=== PATIENT | female | born 1980 ===

== ENCOUNTER 2017-12-13 08:24 | Day surgery (SDC) | payer BC ==
[2017-12-07 15:36] VITALS: BMI 35.7
[2017-12-13] MEDS ORDERED: Lactated Ringer's 1,000 ML IV ONE ×3 (09:30→14:10)
[2017-12-13 09:41] LABS: BASO # 0.1 K/uL (0.0-0.2); BASO % 0.8 % (0.0-2.0); EOS # 0.1 K/uL (0.0-0.7); EOS % 1.3 % (0.0-4.0); HEMOGLOBIN 12.1 g/dL (12.0-16.0); LYMPH # 1.3 K/uL (1.0-4.3); LYMPH % 17.3 % (20.0-40.0); MEAN CELL VOLUME 82.8 fl (81.0-99.0); MEAN CORPUSCULAR HEMOGLOBIN 27.7 pg (27.0-31.0); MEAN CORPUSCULAR HGB CONC 33.4 g/dL (33.0-37.0); MEAN PLATELET VOLUME 9.1 fl (7.2-11.7); MONO # 0.4 K/uL (0.0-0.8); MONO % 5.1 % (0.0-10.0); NEUT # 5.8 K/uL (1.8-7.0); NEUT % 75.5 % (50.0-75.0); RBC 4.36 Mil/uL (3.80-5.20); RED CELL DISTRIBUTION WIDTH 14.9 % (11.5-14.5); WHITE BLOOD COUNT 7.6 K/uL (4.8-10.8)
[2017-12-13] MEDS ORDERED: ePHEDrine 50 mg/ml Inj ONE (10:17)
[2017-12-13] MEDS ORDERED: Propofol 10 mg/ml Inj (20 ML) ONE (10:17)
[2017-12-13] MEDS ORDERED: Midazolam 2 MG/2 ML VIAL ONE (10:18)
[2017-12-13] MEDS ORDERED: Rocuronium 10 mg/ml (5 ml) ONE (10:18)
[2017-12-13] MEDS ORDERED: Succinylcholine 200 mg/10 ml Inj IV ONE (10:18)
[2017-12-13] MEDS ORDERED: Lidocaine 4% (Laryng-O-Jet) Kit MM ONE (10:18)
[2017-12-13] MEDS ORDERED: ceFAZolin IV 1 gm in Dextrose 2 GM/100 ML BAG IVPB ONE (10:31)
[2017-12-13] MEDS ORDERED: Bupivacaine HCl 0.25% PF (30 ml) Inj ONE (10:31)
[2017-12-13] MEDS ORDERED: Dexamethasone 4 mg/1 ml ONE (11:11)
[2017-12-13] MEDS ORDERED: Neostigmine 1:1000 (1 mg/ml) Inj ONE (11:16)
[2017-12-13] MEDS ORDERED: Bupivacaine 0.5% Inj(30mL) IJ ONE ×2 (11:23)
--- NOTE | 2017-12-13 11:28 | OP ---
PROCEDURE DATE: 12/13/2017 SURGEON: Mina Dao MD SUPERVISOR [employer]: Christopher Montoya MD ANESTHESIOLOGIST: MD Pita Alan TYPE OF ANESTHESIA: General endotracheal. PREOPERATIVE DIAGNOSES: 1. Incapacitating pelvic pain. 2. Incapacitating abdominal pain. 3. Abnormal uterine bleeding. 4. History of pelvic endometriosis. 5. History of previously failed medical and surgical therapy. 6. Gastrointestinal and genitourinary symptoms. 7. Rule out interstitial cystitis. 8. History of multiple abdominal surgeries and pelvic adhesions POSTOPERATIVE DIAGNOSES: 1. Incapacitating pelvic pain. 2. Incapacitating abdominal pain. 3. Abnormal uterine bleeding. 4. History of pelvic endometriosis. 5. History of previously failed medical and surgical therapy. 6. History of multiple abdominal surgeries and pelvic adhesions. 7. Gastrointestinal and genitourinary symptoms. 8. extensive abdominopelvic adhesions 9. Mild ureteral distention. PROCEDURES PERFORMED: 1. Exam under anesthesia. 2. Video assisted hysteroscopy. 3. Cystoscopy. 4. Bilateral ureteral catheterization and injection of IC-Green dye. 5. Robotic da Jewell operative laparoscopy. 6. Treatment of endometriosis. 7. Excision of endometriosis. 8. Bilateral ureterolysis. 9. Bilateral ovariolysis. Dr montoya will dictate extensive lysis of adhesions and enterolysis COMPLICATIONS: None. SAMPLES SENT: 1. Left Uterosacral l endometriosis. 2. Left periureteral endometriosis. 3. Right periureteral endometriosis. 4. Right uterosacral endometriosis. 5. Left and right ovarian fossa endometriosis. INDICATION FOR THE PROCEDURE AND CONSENT: The patient had a history of pelvic pain, dysmenorrhea, dyspareunia, abdominal pain, and bladder pain. She also had multiple abdominal surgery including a laparotomy for ovarian mass. The patient had been thoroughly evaluated and counseled regarding the pros and cons of the procedure, the reasonable alternatives, and possible complications. She understood and accepted the risks involved. Literature was provided to the patient. The patient was understanding and given her history and per surgical exam, she was at high risk in an average patient. She accepted all the risks involved, and all the questions had been answered to her satisfaction. FINDINGS OF SURGERY: Genitalia: Normal external genitalia, cervix without lesion and polyps. Hysteroscopy: Hysteroscopy shows a clear uterine cavity with no polyps or masses noticed. Cystoscopy: The cystoscopy was performed to rule out endometriosis and also any interstitial cystitis and also injury. The bladder was normal with no evidence of stone, trigonitis, or cystitis. A positive jet flow was identified in both ureters. Laparoscopy: The upper abdomen hill massive adhesions involving the omentum.. Liver edges appeared to be normal. Ascending colon and transverse were involved in significant adhesions . There was evidence of adhesions, fibrosis, and endometriosis of the rectovaginal and pelvic sidewalls. left fallopian tubes appeared to be patent, right was surgically absentl. DESCRIPTION OF THE PROCEDURE: Initiation of the case: After adequate anesthesia was obtained, the patient was placed in the dorsal lithotomy position, and with extreme care, placement of the patient with hyperextension and hyperflexing of the hips. At this point, the patient was prepped and draped. The surgeon was gowned and gloved. A timeout was taken according to the hospital procedure and the procedure was started. At this point, we performed cystoscopy, bilateral ureteral catheterization. A cystoscope was inserted into the bladder under direct visualization and the bladder was visualized. The bladder was free of lesions and tumors. There was no evidence of interstitial cystitis, and there was only mild amount of trigonitis. At this point, both ureters were identified and appeared to be in their normal anatomical position. At this point, utilizing an open 5-[place] open-ended catheter, the left ureter was catheterized all the way to the distal ureter, and 5 mL of IC-Green was injected into this ureter. Similarly, the contralateral ureter was catheterized all the way to the distal ureter, and 5 mL of IC-Green was injected into the distal ureter. At this point, the stents were removed, and the cystoscope was removed, and the 16-[place] Islander Moore was inserted into the bladder. At this point, we proceeded with a hysteroscopy. A speculum was placed into vagina, and the anterior lip of the cervix was grasped. The cervix was dilated, and a hysteroscope was inserted into the cavity. The cavity appeared to be of normal size with no evidence of polyps, cysts, adenomyosis, or fibroids. At this point, we proceeded with placement of a trocar and docking of the da Jewell Xi robot. The surgeon was re-gowned and gloved, and open laparoscopy was performed by making incision in the umbilicus and the fascia was incised. The peritoneum was entered in a blunt fashion, and the cannula was inserted under direct visualization. The abdomen was insufflated, and under direct visualization, three additional ports were inserted in the left upper quadrant, left mid quadrant, and right upper quadrant. prior to docking the robot Dr montoya performed a laparoscopic lysis of adhesions At this point, the da Jewell Xi robot was brought into the field and docked, and the instruments were inserted under direct visualization. All this with extreme care not to injure the bowel or another area. the pelvis was obliterated by bowel ashsions At this point the console was handed over to Dr. Montoya from General surgery who proceeded with the enterolysis . He will dictate that separately. At this point, we proceeded with a left ureterolysis. The ureter appeared to be dilated and was clearly identified utilizing IC-Green fluorescent technology. Anesthesia was made in the peritoneum at the top of the pelvic brim, and the incision was then carried down all the way opening the peritoneum all the way down from the pelvic brim, all the way down to the ovarian fossa, extending the incision below the ovary. It was a progressive dissection where the ureter was progressively lateralized and peritoneum was medialized, and sent to pathology. At this point, with the aid of very slow process, I was able to elevate the ovary and proceed with ovariolysis. At this point, we proceeded with a left ovariolysis. The left ovary was adherent to the posterior aspect of the uterus. It was gently dissected in a step by step way. It was peeled off, the ovarian fossa, andan area of extensive fibrosis and endometriosis was exposed. At this point, we proceeded with a right ureterolysis. The ureter was identified again utilizing fluorescent technology on the right hand side and retroperitoneal space was entered, and a full dissection was performed,entering the retroperitoneal space and dissecting the ureter, removing the ureter laterally and the peritoneum medially. An area of peritoneum containing endometriosis was dissected and sent to Pathology. At this point, we proceeded with a right ovariolysis. The right ovary was adherent to the peritoneum. It was gently elevated progressively, and dissected off from the peritoneal area. All this done with extreme care to preserve vascularization to the ovary. At this point, we proceeded with treatment of endometriosis and excision of endometriosis. On the left hand side, fibrosis, especially in the left ovarian fossa was excised. In a very progressive step by step fashion, we dissected off fibrosis containing endometriosis and freed up the whole area. T. Areas of fibrosis and endometriosis were also identified in the posterior cul-de-sac and in the rectovaginal space which was also affected with endometriosis and fibrosis. At this point, we proceeded with the excision of perirectal endometriosis. At this point, it was checked for hemostasis and appeared to be excellent. Both fallopian tubes were in good condition and patent. At this point we proceeded with destruction of inflammatory areas utilizing the j-plasma energy device. At this point, the da Jewell Xi robot was removed. The abdomen was desufflated, and the incisions were closed in layers with 0 PDS for the fascia and 4-0 Monocryl for the skin. At the end of the procedure, all tips and instrument counts were correct. The patient tolerated the procedure well and was taken to the recovery room in excellent condition. Felibetro DE LA PAZ, Mina ASTUDILLO
[2017-12-13] MEDS ORDERED: Desflurane Inhalation Anesthetic Liq (240 ml) ONE (12:13)
[2017-12-13] MEDS ORDERED: Silver Nitrate Topical - Stick TOP ONE (12:47)
[2017-12-13] MEDS ORDERED: Lactated Ringer's 1,000 ML IV SCH (13:00)
[2017-12-13] MEDS ORDERED: Oxycodone/Acetaminophen 5/325 mg Tab PO PRN (13:55)
[2017-12-13] MEDS ORDERED: DiphenhydrAMINE 50 mg/ml Inj IVP ONE (14:10)
[2017-12-13] MEDS: HYDROmorphone 0.5 mg/0.5 ml ISec IVP PRN ×2 (14:20→14:25)
--- NOTE | 2017-12-13 14:23 | PCM.OP ---
Operative Report - Operative Report Date of Surgery/Procedure: 12/13/17 Time of Surgery/Procedure: 12:00 Surgeon: Dr. Christopher Montoya Train [employer] Supervisor: Dr. Mina Dao Anesthesia/Sedation: general/Dr. Alan Pre-Operative Diagnosis: abdominal pain and endometriosis. after multiple previoius surgeries with open laparotmy, ovarian cystectomy, cholecystectomy and abdominoplasty with panniculectomy Post-Operative Diagnosis: same Indication for Surgery: as above Operative Findings: multiple dense and extensive adhesions from multiple previous intraabdominal surgeries Procedure/Operation Description: 1-extensive lysis of omental, intestineal, abdominal and pelvic adhesions involvoing small bowel, large bowel and abdominal and pelvic wall. Breif History: This 37 year old woman had already been brought to the OR by Dr. Dao when he noted, after placement of the first umbilical trocar multiple dense adhesion invovling the abdominal wall, pelvis, small and large bowel from multiple previous surgeries. Intraoperartive consultation from [facility] surgery was requested. Description of the Procedure: Dr. Vicente caicedo already initiated the procedure (separate dictation). After taking control of the laparoscopic videoscopy two other trocars were palced strategically in the left abdominal wall and with blunt and sharp dissection with help of electrocautery the dense adhesions were lysed from the anterior abdominal wall, left and right side which invovled small bowel and distal colon from the descending to the sigmoid colon and into the pelvis. The omental and small biowel adhesions were lysed using a similar technique. The adhsions into the pelvis were lysed in a similar fashion. The bowel was then retracted cephalad and the pelvic strictures were exposed. At this point Dr. Dao took over the operation (separate dictation Dr. Dao). Estimated Blood Loss: 30 cc Sponge/Instrument Count: correct Drains: none Complications: none Specimen: none Discharge & Condition: stable
[2017-12-13 15:41] VITALS: RESP 18
[2017-12-13] MEDS ORDERED: Oxycodone/Acetaminophen 5/325 mg Tab PO ONE (17:15)
[2017-12-13 17:49] VITALS: BP 148/66; PULSE 94; TEMP 98; O2SAT 96
== END 2017-12-13 18:20 | disposition home or self-care (01) ==
LOC: H.OPSURG 08:24
PROVIDERS: ATTEND Obstetrics & Gynecology Reproductive Endocrinology
DX: N80.0 Endometriosis of uterus (principal); N73.6 Female pelvic peritoneal adhesions (postinfective); N80.1 Endometriosis of ovary; N80.3 Endometriosis of pelvic peritoneum; N80.4 Endometriosis of rectovaginal septum and vagina; N93.9 Abnormal uterine and vaginal bleeding, unspecified
CPT/HCPCS: 36415; 49329; 52332; 58662; 85025; 86850; 86900; 88305; C1729; J0330; J0690; J1100; J1170; J2001; J2250; J2405; J2704; J2710; J2765; J3010; J7030; J7120